=== PATIENT | male | born 1960 | race African-American/Black ===

== ENCOUNTER 2016-08-28 11:11 | Emergency (ER) | payer MEDICARE ==
[~2016-08-28] VITALS: Ht 170.2 cm; Wt 83.9 kg
[~2016-08-28 11:11] MED LIST: HYDR-971 PO; PRED20TA PO; PRED50TA PO
[2016-08-28 11:47] VITALS: BP 188/94
--- NOTE | 2016-08-28 12:15 | RAD ---
Left foot, 3 views, 08/28/2016: History: Foreign body No fracture or dislocation is identified. No radiopaque foreign body is evident in the soft tissues. There is mild subcutaneous edema. IMPRESSION: No acute bony abnormality is detected.
[2016-08-28] MEDS ORDERED: CEPH-264 PO (13:01)
--- NOTE | 2016-08-28 13:02 | PHYS DOC ---
Past Medical History Past Medical History: Diabetes-Type II, Glaucoma, Hypertension Past Surgical History: No Surgical History Alcohol Use: Occasionally Drug Use: None Adult General Chief Complaint Chief Complaint: FOOT INJURY PAIN HPI HPI Patient is a 55 year old male presents emergency department stating that he stepped on some glass approximately 3 days ago. He states that they pulled the sliver out although he feels that there is still some glass left in site has left foot. He states that he has tenderness noted just below the second metatarsal area. He has tenderness with some redness noted. No drainage or discharge noted. His left throat appears to be slightly swollen. He denies fever , chills or any nausea vomiting. Patient states that he has a diabetic. Patient denies taking any medication for pain and discomfort. Review of Systems Review of Systems Constitutional: Denies fever or chills [] Eyes: Denies change in visual acuity, redness, or eye pain [] HENT: Denies nasal congestion or sore throat [] Respiratory: Denies cough or shortness of breath [] Cardiovascular: No additional information not addressed in HPI [] GI: Denies abdominal pain, nausea, vomiting, bloody stools or diarrhea [] : Denies dysuria or hematuria [] Musculoskeletal: Denies back pain. Complaint of left foot pain and discomfort. Integument: Denies rash or skin lesions [] Neurologic: Denies headache, focal weakness or sensory changes [] Endocrine: Denies polyuria or polydipsia [] Allergies Allergies Allergies Coded Allergies Type Severity Reaction Last Updated Verified No Known Drug Allergies 09/23/15 No Physical Exam Physical Exam Constitutional: Well developed, well nourished, no acute distress, non-toxic appearance. [] HENT: Normocephalic, atraumatic, bilateral external ears normal, oropharynx moist, no oral exudates, nose normal. [] Eyes: PERRLA, EOMI, conjunctiva normal, no discharge. [] Neck: Normal range of motion, no tenderness, supple, no stridor. [] Cardiovascular:Heart rate regular rhythm, no murmur [] Lungs & Thorax: Bilateral breath sounds clear to auscultation [] Skin: Warm, dry, no erythema, no rash. [] Back: No tenderness Extremities: Left foot tenderness noted below the second and third metatarsal area. Slight swelling noted around the area with the foot and ankle being swollen. Minimal redness noted. Tenderness noted on palpation. No cyanosis, no clubbing, ROM intact, no edema. [] Neurologic: Alert and oriented X 3, normal motor function, normal sensory function, no focal deficits noted. [] Psychologic: Affect normal, judgement normal, mood normal. [] Current Patient Data Vital Signs Vital Signs Date Time Temp Pulse Resp B/P (MAP) Pulse Ox O2 Delivery O2 Flow Rate FiO2 08/28/16 11:47 97.9 75 20 96 Room Air 97.9 EKG EKG [] Radiology/Procedures Radiology/Procedures [] Course & Med Decision Making Course & Med Decision Making Pertinent Labs and Imaging studies reviewed. (See chart for details) X-rays were negative for any foreign body or any bony abnormality. Patient will be encouraged to use Keflex for infection with eyedrops packs elevation as much as possible. Patient will also be encouraged to use warm Epsom salt soaks 5 times a day. Spoke with patient regards to questionable foreign body in the foot. Explained that trying to remove the foreign body without being able to see it could cause increased problems. Also spoke with patient regards to wearing shoes as he states that he is a diabetic. Patient states he always goes barefooted. Explained that it is important for diabetics to wear shoes as diabetic neuropathy could develop an cause increased pain and discomfort and unlikely to identify the ability of stepping on foreign objects. Patient will be discharged home in stable condition signs and symptoms to return back to emergency department as been provided. [] Dragon Disclaimer Dragon Disclaimer This electronic medical record was generated, in whole or in part, using a voice recognition dictation system. Departure Departure Impression: Primary Impression: Cellulitis of left foot Disposition: HOME, SELF-CARE Condition: STABLE Referrals: MITCH DE ANDA MD (PCP) EDUARDO ZUNIGA II, MD Patient Instructions: Cellulitis, [id number] Additional Instructions: Activity as tolerated Medication a prescribed Warm episom salt soaks 5 times a day for 20 minutes at a time Elevation as much as possible Followup with your primary care provider Friday as you state you have an appointment Followup with orthopedic Return to emergency department as needed for signs and symptoms that become worse. Scripts Cephalexin (KEFLEX) 500 Mg Capsule 1 CAP PO BID, #20 CAP Prov: CUBA LANDEROS [employer] 08/28/16 CUBA LANDEROS APRN Aug 28, 2016 13:01
== END 2016-08-28 13:05 | disposition home or self-care (01) ==
LOC: ER 11:11
DX: L03.116 Cellulitis of left lower limb (principal); E11.39 Type 2 diabetes mellitus with other diabetic ophthalmic complication; H40.9 Unspecified glaucoma; I10 Essential (primary) hypertension
CPT/HCPCS: 73630; 99284

== ENCOUNTER → 2016-12-19 | Outpatient (CLI) | payer MEDICARE ==
[~2016-12-19] MED LIST changes: +CEPH-264 PO; +REGADENOSON 0.4 MG/5 ML DISP.SYRIN. IV ONE
== END | disposition home or self-care (01) ==
LOC: NM 09:37
PROVIDERS: ATTEND Specialist
DX: I10 Essential (primary) hypertension (principal); E11.9 Type 2 diabetes mellitus without complications; D53.1 Other megaloblastic anemias, not elsewhere classified; R94.31 Abnormal electrocardiogram [ECG] [EKG]; F17.200 Nicotine dependence, unspecified, uncomplicated
CPT/HCPCS: 78452; 93017; 96374; 96376; A9500